=== PATIENT | female | born 1940 | race Caucasian/White ===

== ENCOUNTER 2018-02-02 10:48 | Outpatient (CLI) | payer OTHER | END 2018-02-02 10:51 | disposition home or self-care (01) | LOC: SONOGRAMA 10:48 | DX: E04.1 Nontoxic single thyroid nodule (principal) ==

== ENCOUNTER 2019-12-22 08:41 | Outpatient (CLI) | payer OTHER | END 2019-12-22 08:43 | disposition home or self-care (01) | LOC: SONOGRAMA 08:41 | PROVIDERS: ATTEND Pathology Anatomic Pathology & Clinical Pathology | DX: E04.1 Nontoxic single thyroid nodule (principal) ==